=== PATIENT | male | born 1950 | race Caucasian/White ===

== ENCOUNTER → 2023-04-07 | Outpatient (CLI) | payer OTHER, MEDICARE | END | disposition home or self-care (01) | LOC: RAH 10:21 | PROVIDERS: ATTEND Internal Medicine | DX: I70.203 Unspecified atherosclerosis of native arteries of extremities, bilateral legs (principal); E11.51 Type 2 diabetes mellitus with diabetic peripheral angiopathy without gangrene; E11.65 Type 2 diabetes mellitus with hyperglycemia; L03.115 Cellulitis of right lower limb; I87.2 Venous insufficiency (chronic) (peripheral); R60.0 Localized edema; M79.604 Pain in right leg | CPT/HCPCS: 93925; 93971 ==

== ENCOUNTER → 2023-09-23 | Outpatient (CLI) | payer OTHER | END | disposition home or self-care (01) | LOC: OIH 15:01 | PROVIDERS: ATTEND Internal Medicine Cardiovascular Disease | DX: Z13.6 Encounter for screening for cardiovascular disorders (principal) | CPT/HCPCS: 75571 ==

== ENCOUNTER → 2023-11-10 | Outpatient (CLI) | payer OTHER ==
[2023-11-10] MEDS: REGADENOSON 0.4 MG/5 ML PF SYG IVP ONE (11:58)
== END | disposition home or self-care (01) ==
LOC: SHCH 08:28
PROVIDERS: ATTEND Internal Medicine Cardiovascular Disease
DX: I25.10 Atherosclerotic heart disease of native coronary artery without angina pectoris (principal)
CPT/HCPCS: 78452; 93017; J2785; A9500 ×2; 96374

== ENCOUNTER 2024-03-01 14:18 | Emergency (ER) | payer OTHER ==
[~2024-03-01] VITALS: Ht 180.3 cm; Wt 102.1 kg
[2024-03-01 15:00] VITALS: BP 164/76; PULSE 90; RESP 16
[2024-03-01] MEDS: HYDROCODONE/ACETAMINOPHEN 5/325 MG TAB PO ONE (16:08)
[2024-03-01] MEDS ORDERED: IBUP-2077 PO (16:23)
== END 2024-03-01 16:40 | disposition home or self-care (01) ==
LOC: EDH 14:18
DX: G57.81 Other specified mononeuropathies of right lower limb (principal)
CPT/HCPCS: 73552; 93971

== ENCOUNTER → 2024-10-18 | Outpatient (CLI) | payer OTHER, MEDICARE ==
[~2024-10-18] MED LIST: IBUP-2077 PO
[2024-10-18 10:55] LABS: CREATININE 1.5 mg/dL (0.5-1.3); POTASSIUM 4.5 mmol/L (3.5-5.1)
== END | disposition home or self-care (01) ==
LOC: RAH 08:52
PROVIDERS: ATTEND Nurse Practitioner Family
DX: R07.9 Chest pain, unspecified (principal)
CPT/HCPCS: 36415; 80048

== ENCOUNTER → 2024-11-11 | Outpatient (CLI) | payer OTHER ==
[~2024-11-11] MED LIST changes: +IOHEXOL 350 MG/ML 100ML INFUS..BTL IV ONE
--- NOTE | 2024-11-11 10:38 | HMCIMG ---
CT OF THE CHEST WITH CONTRAST- CT Cardiac Angio co-interpretation This is done as part of the CT cardiac angiogram study. The interpretation of the coronary arteries will be done by bender machine in a separate report. History: over-read Comparison: none CT Dose Index (CTDI): 77.90 mGy Dose Length Product (DLP): 493.40 total mGy PROTOCOL: Examination is done at 2.5 millimeter volumetric acquisition after contrast administration with Isovue 370, 100 cc IV, without complications. Photography is done at 5 millimeter thick intervals for the thorax. The examination begins above the heart and therefore the lung apices are incompletely included. The rest of the left lung is included but the right lung is only included up to its middle third. The periphery of the right lung is not included in the study. FINDINGS: The visualized part of the airway is preserved. The bony and soft tissue structures of the chest wall are unremarkable. The aorta is unremarkable. No mediastinal lymphadenopathy is seen. The lung windows demonstrate no worrisome pulmonary nodules, masses or infiltrates. There is no evidence of pulmonary embolism in the visualized lung segments. The upper abdominal views are unremarkable. Impression: No significant abnormalities identified.
--- NOTE | 2024-11-14 15:59 | CARDIOLOGY ---
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 A dedicated, limited window, coronary imaging protocol was used, with single breath-hold, retrospective ECG gating, and automated arrhythmia rejection. 100 cc of low osmolar contrast agent: Omnipaque 350 was delivered via a 18-gauge IV catheter in the right antecubital fossa, using a power injector and followed by 60 cc of normal saline bolus as a chaser. Collimated images were reformatted at 0.5 mm intervals, and sent to an offline independent workstation for interpretation, using 3D anatomic reconstructions: Curved multiplanar reconstructions, maximum intensity projections, and multiplanar imaging. No metoprolol was administered prior to scanning due to low baseline heart rate. 0.8 mg SL nitroglycerin was given. CORONARY ARTERY DESCRIPTIONS: The coronary arteries arise in normal position. Left main coronary artery: Normal caliber vessel that bifurcates into the LAD and LCx. No stenosis. Left anterior descending coronary artery: Normal caliber vessel and gives rise to diagonal and septal branches. The proximal to mid LAD is sub-totally occluded. Left circumflex coronary artery: Normal caliber, nondominant and gives rise to two OM branches. There is mixed calcified and noncalcified plaque in the p roximal to mid LCx with 70% stenosis. The OM1 branch is not well visualized. Right coronary artery: Large, dominant vessel giving rise to the PL and PDA branches. There is mixed calcified and noncalcified plaque in the proximal RCA with 20-30% stenosis CAD-RADs: 4A, severe stenosis. Recommend left heart catheterization. Thoracic Aorta: Normal diameter. Cayla Gonzalez MD Cardiovascular Disease [facility] CAYLA GONZALEZ MD Nov 14, 2024 15:59
== END | disposition home or self-care (01) ==
LOC: RAH 09:05
PROVIDERS: ATTEND Internal Medicine Cardiovascular Disease
DX: R07.9 Chest pain, unspecified (principal)
CPT/HCPCS: 75574; Q9967

== ENCOUNTER → 2025-08-26 | Outpatient (CLI) | payer OTHER, MEDICAID ==
[~2025-08-26] MED LIST changes: +ASCO500C18 PO; +ASPI-1443 PO; +CILO100T3 PO; +GABA-529 PO; +GLIP5TAB15 PO; +HYDR12.54 PO; -IBUP-2077 PO; -IOHEXOL 350 MG/ML 100ML INFUS..BTL IV ONE; +MAGN250T10 PO; +METF-446 PO; +MULT-1299 PO; +NAPR220T57 PO; +ROSU10TA98 PO; +TAMS-55 PO; +VERA240T95 PO
--- NOTE | 2025-08-26 20:05 | HMCIMG ---
US DUPLEX RIGHT LOWER EXTREMITY ARTERIES Clinical History: Pain to right leg. Technique: Real-time ultrasound scan of the arteries of the right lower extremity was performed using 2-D martinez scale, color Doppler flow, and spectral waveform analysis. Comparison: None provided. Findings: Common Femoral Artery: Peak systolic velocity (PSV) measured at 90 cm/sec. No occlusion or significant stenosis. Normal. Superficial Femoral Artery: Proximal segment PSV is 103 cm/sec. Mid segment PSV is 88 cm/sec. Distal segment PSV is 72 cm/sec. No occlusion or significant stenosis. Normal. Popliteal Artery: Proximal segment PSV is 76 cm/sec. Distal segment PSV is 71 cm/sec. No occlusion or significant stenosis. Normal. Calf Arteries: Posterior tibial artery PSV is 96 cm/sec. Anterior tibial artery distal PSV is 66 cm/sec. Dorsalis pedis artery PSV is 52 cm/sec with biphasic waveform. No occlusion or significant stenosis. Normal. Impression: * Mild atherosclerosis of the right lower extremity arteries without evidence of significant stenosis or occlusion. /[place]
--- NOTE | 2025-08-26 20:05 | HMCIMG ---
EXAM: US for Deep Venous Thrombosis, right Lower Extremity. CLINICAL HISTORY: Leg Pain and Swelling TECHNIQUE: Real-time ultrasound scan of the veins of the right lower extremity with color Doppler flow, spectral waveform analysis and compression. COMPARISON: None provided. FINDINGS: DEEP VEINS: The common femoral, superficial femoral, and popliteal veins are echolucent and compressible. There is normal color Doppler flow throughout. The visualized calf veins appear patent. SOFT TISSUES: No popliteal fossa cyst or other abnormalities. IMPRESSION: 1. No deep venous thrombosis evident on right lower extremity examination. /[place]
== END | disposition home or self-care (01) ==
LOC: RAH 09:47
PROVIDERS: ATTEND Family Medicine
DX: I70.201 Unspecified atherosclerosis of native arteries of extremities, right leg (principal); M79.604 Pain in right leg
CPT/HCPCS: 93926; 93971